=== PATIENT | male | born 1985 | race Caucasian/White ===

== ENCOUNTER 2022-02-11 17:32 | Observation (INO) | payer OTHER, SELFPAY ==
[2022-02-11] VITALS (7 sets, daily range): BP systolic 103–129; BP diastolic 63–77; PULSE 82–148; RESP 16–24; TEMP 36.2–36.9; O2SAT 97–99; BMI 28.3
--- NOTE | ~2022-02-11 | XR_ITS ---
EXAMINATION: XR chest 2V DATE: 02/11/2022 18:14 INDICATION: Shortness of breath and heart palpitations TECHNIQUE: frontal and lateral views of the chest were obtained. COMPARISON: None FINDINGS: The lungs are clear with no focal airspace opacities, pulmonary edema, pleural effusion or pneumothor ax. The cardiomediastinal silhouette is normal. Mild thoracic spondylosis with mild anterior wedging of a few lower thoracic vertebral bodies. IMPRESSION: 1. No acute cardiopulmonary disease. Reviewed, dictated and finalized at location A. BENCH OPERATOR HELPER
--- NOTE | 2022-02-11 17:36 | ECG_ITS ---
Measurements Intervals [place] Rate: 161 P: MO: 0 QRS: 59 QRSD: 82 T: 46 QT: 266 QTc: 436 Interpretive Statements ATRIAL FIBRILLATION WITH RAPID VENTRICULAR RESPONSE INCOMPLETE RIGHT BUNDLE BRANCH BLOCK ABNORMAL ECG NO PREVIOUS ECG AVAILABLE FOR COMPARISON Electronically Signed On 02-11-2022 20:55:49 EPITAXIAL REACTOR OPERATOR by Truong Jones D.O.
[2022-02-11 18:10] LABS: Basophils Percent Auto 0.4 % (0.2-1.2); Eosinophils Absolute Auto 0.1 K/mm3 (0-0.3); Eosinophils Percent Auto 1.3 % (0-4.4); Hematocrit 40.4 % (42.0-52.0); Hemoglobin 13.6 g/dL (14.0-18.0); Immature Granulocyte Absolute 0.02 K/mm3 (0.00-0.031); Immature Granulocyte Percent A 0.3 % (0-0.5); Lymphocytes Absolute Auto 1.83 K/mm3 (0.9-3.2); Lymphocytes Percent Auto 26.5 % (18.3-44.2); Mean Corpuscular HGB Conc 33.7 g/dl (32-36); Mean Platelet Volume 9.9 fl (7.4-10.4); Monocytes Absolute Auto 0.4 K/mm3 (0.1-0.6); Monocytes Percent Auto 6.1 % (2.6-8.5); Neutrophils Absolute Auto 4.5 K/mm3 (1.3-6.7); Neutrophils Percent Auto 65.4 % (45.5-73.1); Platelet Count Result 187 k/mm3 (150-375); Red Blood Count 4.39 M/mm3 (4.6-6.20); Red Cell Distribution Width 11.9 % (11.5-14.5); White Blood Count 6.9 K/mm3 (4.5-10.0)
[2022-02-11 18:19] LABS: Prothrombin Time 12.6 Seconds (11.1-14.7)
[2022-02-11 18:20] LABS: Partial Thromboplastin Time 27.6 SECONDS (22.3-36.8)
[2022-02-11 18:25] LABS: Alanine Aminotransferase 26 U/L (6-50); Alkaline Phosphatase 81 U/L (38-126); Anion Gap 9 mmol/L (8-16); Aspartate Amino Transferase 27 U/L (17-59); Bilirubin,Total 0.2 mg/dL (0.2-1.3); Blood Urea Nitrogen 20 mg/dL (9-20); Calcium 8.7 mg/dL (8.4-10.2); Carbon Dioxide 20 mmol/L (22-30); Chloride 111 mmol/L (98-107); Estimated Glomerular Filt Rate > 60; Glucose 156 mg/dL (65-110); Sodium 140 mmol/L (137-145)
[2022-02-11] MEDS: dilTIAZem HCl INJ 25 MG/5 ML VIAL 10 MG IV PUSH (18:28)
[2022-02-11 18:31] LABS: Troponin I 0.028 ng/mL (0.000-0.034)
--- NOTE | 2022-02-11 19:11 | ED.ARRPALP ---
HPI - Arrhythmia/Palpitations General Chief Complaint: Arrhythmia/Palpitations Stated Complaint: PALPATATIONS Time Seen by Provider: 02/11/22 17:47 History of Present Illness HPI narrative: Patient is a 36-year-old male who presents ER with palpitations. Has been having intermittent palpitations for the last 2 years that last 30 seconds and go away with a deep breath. It began today at 10 AM and has not stopped. He did have a energy drink at 7 AM but that is a daily occurrence for him. He reports some minor chest tightness related to this and shortness of breath with exertion. reports she seemed much more fatigued than typical and slightly more pale. Patient has had no syncope. Because symptoms did not stop he opted to come to the ER for further evaluation. Related Data Allergies Allergy/AdvReac Type Severity Reaction Status Date / Time No Known Allergies Allergy Mild Verified 07/29/10 19:00 Review of Systems Review of Systems: All systems reviewed & are unremarkable except as noted in HPI and below Constitutional: Constitutional: Denies chills, Reports fatigue and Denies fever(s) ENT: Denies nasal congestion and Denies sore throat Cardiovascular: Cardiovascular: Reports chest pain, Reports rapid heart rate and Denies radiating jaw, neck or arm pain Respiratory: Respiratory: Denies cough, Reports dyspnea and Denies wheezing Gastrointestinal: Gastrointestinal: Denies abdominal pain, Denies nausea and Denies vomiting PMFSH Past Medical History Medical History (Updated 02/11/22 @ 19:31 by Markus Henry MD) Healthy adult male Surgical History Surgical History (Updated 02/11/22 @ 19:29 by Markus Henry MD) No pertinent past surgical history Social History Social History (Updated 02/11/22 @ 19:30 by Markus Henry MD) Smoking status: Never smoker Alcohol use details: occassional Exam Narrative: GENERAL: Well-appearing, well-nourished, and in no acute distress. HEAD: Normocephalic, atraumatic. EYES: PERRL and EOMI. ENT: Mucous membranes moist. CHEST: Clear to auscultation. No respiratory distress. HEART: Irregular regular rate and rhythm that is tachycardic. Normal peripheral pulses. ABDOMEN: Soft, nontender, nondistended. EXTREMITIES: Normal range of motion. No edema. SKIN: Warm, dry, no rash. NEURO: Alert and oriented x3. PSYCH: Normal mood and affect. Course Course Emergency Course: Discussed case with Dr. Ward. He would like the patient admitted to the hospitalist service. He is also like the patient received oral metoprolol 25 mg as well as this morning early with 1 mg/kg Lovenox. He will evaluate the patient in the morning to determine further therapy. Vital Signs Vital signs: Vital Signs Temperature 98.4 F 02/11/22 18:23 Pulse Rate 148 H 02/11/22 18:23 Respiratory Rate 24 H 02/11/22 18:23 Blood Pressure 129/74 02/11/22 18:23 Pulse Oximetry 99 02/11/22 18:23 Oxygen Delivery Room Air 02/11/22 18:23 Temperature 98.4 F 02/11/22 18:23 Pulse Rate 86 02/11/22 20:33 Respiratory Rate 20 02/11/22 20:33 Blood Pressure 119/71 02/11/22 20:33 Pulse Oximetry 98 02/11/22 20:33 Oxygen Delivery Room Air 02/11/22 18:23 MDM - Arrhythmia/Palpitations Lab Data Result diagrams: 02/11/22 18:04 02/11/22 18:04 Labs: Lab Results 02/11/22 02/11/22 02/11/22 Range/Units 18:04 18:04 18:04 WBC 6.9 (4.5-10.0) K/mm3 RBC 4.39 L (4.6-6.20) M/mm3 Hgb 13.6 L (14.0-18.0) g/dL Hct 40.4 L (42.0-52.0) % MCV 92.0 (80-100) fl MCH 31.0 (26-34) pg MCHC 33.7 (32-36) g/dl RDW 11.9 (11.5-14.5) % Plt Count 187 (150-375) k/mm3 MPV 9.9 (7.4-10.4) fl Immature Gran % (Auto) 0.3 (0-0.5) % Neut % (Auto) 65.4 (45.5-73.1) % Lymph % (Auto) 26.5 (18.3-44.2) % Bowman % (Auto) 6.1 (2.6-8.5) % Eos % (Auto) 1.3 (0-4.4) % Baso % (Auto) 0.4 (0.2-1.2) % L
[2022-02-11] MEDS: METOPROLOL TARTRATE 25 MG TABLET PO (19:27)
[2022-02-11] MEDS: ENOXAPARIN 120 MG/0.8 ML SYRINGE 110 MG SUB-Q (19:28)
--- NOTE | 2022-02-11 21:36 | ADMGEN ---
This patient, Gold Spicer Jr., was admitted to Medical Room 241-01. Patient/family oriented to hospital policies and general routines including ID bracelet, bed and alarms, visiting hours, pain management, procedures, bathroom and other care routines, personal items, smoking policy, room service/diet, and visiting hours. Information on how to activate the Rapid Response Team has been discussed. Patient/Family are encouraged to report perceived risks to care and to ask questions if they do not understand what they are told or what they should do.
--- NOTE | 2022-02-11 23:55 | PM.IMHP ---
H&P: HPI History of Present Illness Date/Time: 02/11/22 23:55 Chief Complaint: Irregular heart rate Narrative: 36-year-old male previously healthy who presented to the ER with irregular heart rate. Patient reports that he has been having intermittent episodes of fast irregular fast heart rate for the last 2-3 years. He reports that he has had probably 10-12 episodes over that time. Usually when he feels these palpitations and heart racing it only lasted a few minutes. However today it started around 10:00am and persisted. He initially tried to sit down and relax but the symptoms continued. So then he decided decided to jump on the treadmill and run for about 10 minutes to see if this would relieve his symptoms. This made him feel more short of breath so he stopped. He reported that after he had been having the symptoms for about 5 hours he became significantly short of breath and decided to come to the ER. He denies any true chest pain. He reports that he feels his heart fluttering up in his chest and up into his neck. He put his sons Apple watch on which demonstrated is heart rate was fast and running as high as 180 beats per minute. He denies any orthopnea, paroxysmal nocturnal dyspnea, cough, congestion or feeling lightheaded or having episodes of syncope. 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 He does admit to drinking 1 energy drink at around 07:00 every single day. He will occasionally drink a diet Mountain Dew in the evening. He denies any illicit substance use. He reports that he has been sleeping well and denies any extra stressors. He denies any preceding symptoms such as chest pain or dyspnea on exertion. He does drink between 1-3 beers daily. He does snore but denies any reported episodes of apnea. He feels well rested when he wakes up. On exam he does have crowded posterior oropharynx. He has never been tested for sleep apnea. The patient is quite anxious at this time and states that he wants to know when his heart is going to quit causing. I did discuss with the patient that his heart was not causing in that this sensation he is feeling his associated with his heart rate slowing and him trying to cover back into sinus rhythm. He has not seen a primary care physician in many years. He reports that he is otherwise healthy. He denies any history of hypertension. He will occasionally check his blood pressure on his 's a quit at that she has due to her being a hardware trainer. He reports that his blood systolic blood pressures have never been above 130 over 80. For the most part his blood pressures are in the 110 range systolic. Review of Systems Review of Systems: 12 systems were reviewed with pertinent positives and negatives per HPI. Except as documented in the HPI, all other systems were reviewed and are negative. [facility] Past Medical History Medical History (Updated 02/11/22 @ 19:31 by Markus Henry MD) Healthy adult male Surgical History Surgical History (Updated 02/12/22 @ 03:25 by Laura Christiansen DO) Status post anal fissurectomy Family History Family History (Updated 02/12/22 @ 03:25 by Laura Christiansen DO) Mother Diabetes mellitus Morbid obesity Father Tobacco use Hypertension Hyperlipidemia COPD (chronic obstructive pulmonary disease) Cirrhosis Social History Social History (Updated 02/12/22 @ 03:27 by Laura Christiansen DO) Social History: He lives with his and 2 children. His children are 15 and 12 years old respectively. 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 He drinks 1-3 beers nightly. He is a lifelong nonsmoker and denies illicit substance use. Code status: Full code Surrogate decision maker: Smoking status: Never smoker Alcohol intake: current Drinks per week: 7 Alcohol use details: occassional Substance use: never Lack of T
[2022-02-12] VITALS (13 sets, daily range): BP systolic 93–130; BP diastolic 61–85; PULSE 65–138; RESP 10–20; TEMP 36.4–36.7; O2SAT 96–100
--- NOTE | 2022-02-12 | ECHO_ITS ---
Patient Info Name: Gold Spicer Age: 36 years : 1985 Gender: Male Ht: 73 in Wt: 242 lbs BSA: 2.41 m2 HR: 119 bpm BP: 121 / 77 mmHg Heart Rhythm: Atrial Fibrillation Technical Quality: Fair Exam Date: 02/12/2022 8:08 AM Exam Location: [facility] Patient Status: Outpatient Admit Date: 02/11/2022 Staff Ordering Physician: Laura Christiansen DO Change Management Manager: Elida Granger RDCS Attending Provider: Hedy Alejandra PA-C Referring Physician: Kuldip SU; Exam Type: CA echo doppler color flow Study Info Indications - New onset Afib Complete two-dimensional, color flow and Doppler transthoracic echocardiogram is performed. Summary 1. Complete two-dimensional, color flow and Doppler transthoracic echocardiogram is performed. 2. Left ventricular chamber dimension is normal. 3. Left ventricular systolic function is normal, estimated at 60-65%. 4. There is mildly increased left ventricular wall thickness. 5. The left ventricular diastolic function is indeterminate. 6. Left atrial chamber dimension is mildly enlarged. 7. Right atrial chamber dimension is mildly enlarged. 8. There is mild mitral valve regurgitation. 9. There is mild tricuspid valve regurgitation. Left Ventricle Left ventricular chamber dimension is normal. Left ventricular systolic function is normal, estimated at 60-65%. There is mildly increased left ventricular wall thickness. The left ventricular diastolic function is indeterminate. Right Ventricle Right ventricular chamber dimension is normal. Right ventricular systolic function is normal. Left Atria Left atrial chamber dimension is mildly enlarged. Right Atria Right atrial chamber dimension is mildly enlarged. Atrial Septum Intact interatrial septum visualized by color flow imaging. Aortic Valve The aortic valve is probable trileaflet. There is no aortic valve sclerosis. There is no aortic valve stenosis. There is trace aortic valve regurgitation. Pulmonic Valve The pulmonic valve is normal. There is no pulmonic valve stenosis. There is trace pulmonic regurgitation. Mitral Valve The mitral valve has normal leaflets. There is no mitral valve stenosis. There is mild mitral valve regurgitation. Tricuspid Valve The tricuspid valve leaflets are normal. There is no significant tricuspid valve stenosis. There is mild tricuspid valve regurgitation. No pulmonary hypertension, estimated pulmonary arterial systolic pressure is 23 mmHg. Pericardium/Pleural The pericardium appears normal. There is no pericardial effusion. Inferior Vena Cava Normal inferior vena cava with >50% collapse upon inspiration consistent with normal right atrial pressure, 10 mmHg. Aorta The aortic root size at the sinus of Valsalva is normal. Left Ventricular Outflow Tract Name Value Normal LVOT 2D LVOT Diameter 2.1 cm LVOT Doppler LVOT Peak Gradient 4 mmHg LVOT Mean Gradient 2 mmHg LVOT VTI 18 cm LVOT VTI/AV VTI Ratio 0.9
[2022-02-12 05:09] LABS: Anion Gap 8 mmol/L (8-16); Blood Urea Nitrogen 14 mg/dL (9-20); Calcium 8.3 mg/dL (8.4-10.2); Carbon Dioxide 25 mmol/L (22-30); Chloride 108 mmol/L (98-107); Estimated CRCL calculation 128 ml/min; Estimated Glomerular Filt Rate > 60; Glucose 110 mg/dL (65-110); Potassium 3.9 mmol/L (3.4-5.0); Sodium 141 mmol/L (137-145)
[2022-02-12] MEDS: METOPROLOL TARTRATE 25 MG TABLET PO (08:47)
--- NOTE | 2022-02-12 14:16 | PM.CNCAR ---
Assessment and Plan Assessment and plan (1) Atrial fibrillation with RVR: Code(s): I48.91 - Unspecified atrial fibrillation Status: Acute Assessment and Plan: New onset atrial fibrillation with rapid ventricular response. He went in atrial fibrillation less than 48 hours ago. He did receive a dose of 1 milligram/kilogram of enoxaparin last night. He has a chads Vasc score of 0. Plan will be for elective cardioversion now. Will check a free T4 level also. Outpatient stress test. Will start metoprolol therapy 12.5 mg p.o. b.i.d. upon discharge as well as Xarelto 20 mg daily for a minimum of 4 weeks post discharge. No need for MICHEAL as he recently went into atrial fibrillation within 48 hours. If cardioversion does not work or if he has recurrent episodes of atrial fibrillation future, will consider antiarrhythmic therapy and obviously long-term strategy may even include an ablation depending on the need. He is also advised to limit or eliminate caffeine and alcohol from his diet. Outpatient sleep study also EKG after procedure (2) Biatrial enlargement: Code(s): I51.7 - Cardiomegaly Status: Acute Assessment and Plan: Mild (3) Mitral regurgitation: Code(s): I34.0 - Nonrheumatic mitral (valve) insufficiency Status: Acute Assessment and Plan: Mild and asymptomatic. Will repeat an echo in 3-5 years History of Present Illness History of Present Illness Consult date/time: 02/12/22 14:16 Requesting physician: Markus Henry MD Consult reason: atrial fibrillation Reason For Visit: AFIB Narrative: Date of service 02/12/2022 Reason for consultation: Atrial fibrillation Requesting provider: Dr. Henry History: Patient is a 36-year-old male who does not have known cardiac history. He states that about 10 times over the past 3 years he has had what he thinks is atrial fibrillation. He assumed it was based upon some reading and understanding of the rhythm problem. He would go into an abnormal rhythm where he would feel a intermittent palpitation and flutter sensation as well as it rushing beat up into his neck. It would last for few minutes and spontaneously resolved. Yesterday at 10:00 a.m. a started. Yesterday however it did not stop. Despite several hours of waiting as well as some other treatments is aspirin, he decided come to the ER for further workup and evaluation. He was found to be in atrial fibrillation with rapid ventricular response upon presentation to the ER. He was given diltiazem which did lower his heart rate and was admitted for further observation. He did have metoprolol today about heart rate is still somewhat elevated on low 100. He is still symptomatic. Yesterday he was short of breath. He otherwise denies any recent chest pain, syncope, presyncope, paroxysmal nocturnal dyspnea, orthopnea, edema. He does sometimes snore but does not snore routinely. He has a chads Vasc score 0. He does drink 1-3 beers per day as well as 1 energy drink in the morning. Review of Systems Review of Systems: All systems reviewed & are unremarkable except as noted in HPI and below Constitutional: Constitutional: Denies body ache(s) and Denies chills Eyes: Eyes: Denies blurry vision ENT: Reports Normal hearing present and Denies epistaxis Cardiovascular: Cardiovascular: Denies chest pain and Reports palpitations Respiratory: Respiratory: Denies hemoptysis and Reports dyspnea Gastrointestinal: Gastrointestinal: Denies abdominal pain Genitourinary: Genitourinary: Denies hematuria Musculoskeletal: Musculoskeletal: Denies back pain and Denies myalgias Integumentary/Breasts: Skin/Breast: Denies breast pain, Denies erythema and Denies rash Neurologic: Denies Abnormal speech present and Denies abnormal gait Psychiatric: Psychiatric: Reports anxiety Endocrine: Endocrine: Denies excessive sweating Hematologic/Lymphatic: Hematologic/Lymphati
--- NOTE | 2022-02-12 14:20 | ECG_ITS ---
Measurements Intervals [place] Rate: 60 P: 53 SC: 185 QRS: 53 QRSD: 108 T: 34 QT: 379 QTc: 379 Interpretive Statements SINUS RHYTHM INCOMPLETE RIGHT BUNDLE BRANCH BLOCK NONSPECIFIC ST ELEVATION IN ANT/INF LEADS BORDERLINE ECG COMPARED TO ECG 02/11/2022 17:37:11 [address] NOW PRESENT [address] (T WAVE) DEVIATION NOW PRESENT Electronically Signed On 02-12-2022 16:06:08 SOLDERING MACHINE OPERATOR HELPER by Truong Jones D.O.
[2022-02-12] MEDS: RIVAROXABAN 20 MG TABLET PO (14:22)
--- NOTE | 2022-02-12 14:27 | WPDMODSED ---
Moderate Sedation Note-Pt Data Patient Data Diagnosis: 1. Atrial fibrillation Present Complaint: Atrial fibrillation Procedure to be performed/Plan: 1. Elective cardioversion Moderate sedation Allergies Allergy/AdvReac Type Severity Reaction Status Date / Time No Known Allergies Allergy Mild Verified 07/29/10 19:00 Home Medications Medication Instructions Recorded Confirmed Type No Home Medications 02/11/22 02/11/22 History Current Medications: Active Medications Acetaminophen (Acetaminophen 325 Mg Tablet) 650 mg PO Q4H PRN PRN Reason: Mild Pain (1-3) or Fever Metoprolol Tartrate (Metoprolol Tartrate 25 Mg Tablet) 25 mg PO Q12HR [facility] Last Admin: 02/12/22 08:47 Dose: 25 mg Ondansetron HCl (Ondansetron Inj 4 Mg/2 Ml Vial) 4 mg IV PUSH Q4H PRN PRN Reason: Nausea Perflutren Lipid Microsphere (Perflutren Lipid Microspheres 1.5 Ml Vial Diluted To 10 Ml Total Volume) 0 ml IV PUSH ONCE PRN; Protocol PRN Reason: adequate visualization Stop: 02/13/22 20:12 Rivaroxaban (Rivaroxaban 20 Mg Tablet) 20 mg PO DAILY@1700 [facility] Last Admin: 02/12/22 14:22 Dose: 20 mg Sedation/Anesthesia: No previous sedation/anesthesia problems (including family history). [facility] Past Medical History Medical History Healthy adult male Surgical History Surgical History Status post anal fissurectomy Family History Family History Mother Diabetes mellitus Morbid obesity Father Tobacco use Hypertension Hyperlipidemia COPD (chronic obstructive pulmonary disease) Cirrhosis Social History Social History Social History: He lives with his and 2 children. His children are 15 and 12 years old respectively. 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 He drinks 1-3 beers nightly. He is a lifelong nonsmoker and denies illicit substance use. Code status: Full code Surrogate decision maker: Smoking status: Never smoker Alcohol intake: current Drinks per week: 7 Alcohol use details: occassional Substance use: never Lack of Transportation: No Lack of Food: Never True Current Housing: I Have Housing Concerned About Future Housing: No Difficulty Paying Gas/Electric Bills: No Difficulty Paying for Meds: No Currently Unemployed: No Education: Don't Know Difficulty w/ Childcare or Family Care: No Spiritual care concerns: No Mod Sed Physical Exam Physical Exam Pre Procedural Exam: Normal: Appearance, Eyes, Ears, Nose, Neck, Throat, Airway, Lungs, Heart Size, Neuro Exam, Extremities and Skin and Variation: Heart Rate (Tachycardia) and Heart Rhythm (Irregular irregular) Hours since solid foods: 2 Hours since liquid intake: 2 Mallampati Classification: class 1 Internal Medicine - PN: Obj Da Vital Signs Vital Signs: Vital Signs - 24 hr 02/11/22 18:23 02/11/22 18:46 02/11/22 19:25 Temperature 36.9 C Pulse Rate 148 H 105 H 95 Respiratory Rate 24 H 16 Blood Pressure 129/74 112/63 Pulse Oximetry 99 99 Oxygen Delivery Room Air 02/11/22 19:27 02/11/22 20:33 02/11/22 21:24 Temperature Pulse Rate 103 H 86 82 Respiratory Rate 20 18 Blood Pressure 119/71 103/77 Pulse Oximetry 98 99 Oxygen Delivery 02/11/22 21:53 02/11/22 21:40 02/12/22 00:00 Temperature 36.2 C L Pulse Rate 94 97 Respiratory Rate 20 Blood Pressure 126/74 Pulse Oximetry 97 Oxygen Delivery Room Air 02/12/22 04:28 02/12/22 04:00 02/12/22 08:00 Temperature 36.4 C Pulse Rate 119 H 96 93 Respiratory Rate 20 Blood Pressure 121/77 Pulse Oximetry 98 Oxygen Delivery 02/12/22 12:00 Temperature Pulse Rate 93 Respiratory Rate Blood Pressure Pulse Oximetry Oxygen Delivery Intake/Output Intake/Output:
--- NOTE | 2022-02-12 14:45 | P.PCNCVR_ITS ---
Cardioversion Cardioversion Date of procedure: 02/12/22 Procedure: Electrical cardioversion Moderate sedation Pre-op diagnosis: Atrial fibrillation Post-op diagnosis: Same Indications: Atrial fibrillation Description of procedure: After discussing risks, benefits alternatives of procedure patient agreeable via verbal and written informed consent. Risks discussed included skin irritation or burn, , shocked into more problematic heart rhythm, adverse reaction to anesthesia. After continuous telemetry monitoring, pulse oxygenation and serial blood pressure assessments were established, a time-out was taken the procedure was started. Procedure start time 2:31 p.m. Procedure stop time 2:40 p.m. Sedation: A total 4 mg Versed and 75 mcg of fentanyl were given in divided dosages Patient was monitored and medications were administered by Elin Wang RN Complications: None Blood loss: None Sedation: As above Findings: Successful anabaptism of sinus rhythm from atrial fibrillation using 150 joules of biphasic synchronized energy Conclusion: 1. Successful anabaptism of sinus rhythm from atrial fibrillation using 150 joules of biphasic synchronized energy 2. Moderate sedation Plan he will need 1 month of uninterrupted anticoagulation using Xarelto 20 mg daily. Also discharged home with 12.5 mg p.o. b.i.d. of metoprolol tartrate. Outpatient stress test as well as outpatient sleep study Follow-up with me in 2-4 weeks
[2022-02-12 15:18] LABS: T4 Thyroxine 5.76 ug/dL (5.53-11.0)
--- NOTE | 2022-02-12 16:14 | PM.DS ---
DS: Admitting Diagnosis Discharge Date 02/12/2022 Admitting Diagnosis Atrial fibrillation with rapid ventricular response DS: Discharge Diagnosis Discharge Diagnosis (1) Atrial fibrillation with RVR: Code(s): I48.91 - Unspecified atrial fibrillation Status: Acute Assessment and Plan: New onset AFib RVR the but sounds like the patient has likely been having symptoms consistent with paroxysmal AFib for a couple of years. He received 1 dose of IV Cardizem in the ER and rate was well controlled following, however remained in atrial fibrillation. He was started on p.o. metoprolol and monitored on telemetry. Received therapeutic Lovenox on presentation. Following cardiology consultation, decision was made to proceed with cardioversion. Patient was successfully cardioverted on 02/12/2022 with mormonism of sinus rhythm. He will continue 1 month of systemic anticoagulation (Xarelto 20 mg daily). Patient educated on anticoagulation precautions and agreeable to proceed. Also continue with metoprolol tartrate 12.5 mg b.i.d.. Echocardiogram was unremarkable with normal EF, indeterminate diastolic function, mild atrial enlargement, no significant valvular disease. He will need outpatient stress test and outpatient sleep study. He will follow-up with cardiology in 2-4 weeks. He was counseled on cessation of alcohol and caffeine use. DS: Summary Hospital Course Hospital Course: Date of admission: 02/11/2022 Date of discharge: 02/12/2022 Gold Spicer is a 36-year-old male with no prior medical history who presented to the ER on 02/11/2022 with complaints of palpitations ongoing for about 6 hours prior to presentation. Reports similar episodes in the past that usually lasted 30 seconds and resolved. Reportedly patient had been increasingly fatigued and had some minor shortness of breath with exertion. On presentation to the ED, his heart rate was 148, respiratory rate 24, additional vital signs stable, hemoglobin 13.6, hematocrit 40.4, additional laboratory workup unremarkable, CXR with no acute cardiopulmonary disease. Patient was admitted to the hospitalist service for further evaluation management was seen in consultation by cardiology. Please see plan as above. Following cardioversion patient was feeling back to his usual state of health and felt comfortable with plans for discharge home. He was discharged in hemodynamically stable condition on 02/12/2022. Status at Discharge Functional status at discharge: independent ambulation Time Spent with Patient Time attestation: Total time spent providing and/or coordinating discharge services: 35 minutes Time spent: Greater than 30 minutes Exam Narrative: General: Well-nourished, well-appearing 36-year-old male, sitting up in bed, comfortable, NARD Neuro: awake, alert and oriented x4, speech clear, no focal neuro deficits noted HEENMT: normocephalic, atraumatic, EOMI, sclerae anicteric, moist oral mucosa Respiratory: clear to auscultation bilaterally, nonlabored breathing Cardio: tachycardic, irregularly irregular rhythm Abdomen: nondistended, normoactive bowel sounds, soft, nontender to palpation Extremities: no edema, erythema, or tenderness to palpation Skin: no rashes or lesions, warm and dry Psych: appropriate mood and affect, judgment and insight intact DS: Data Data Completed and Pending Labs on day of discharge: Labs from last 24 hours 02/12/22 02/12/22 02/12/22 04:37 04:37 04:34 WBC RBC Hgb Hct MCV MCH MCHC RDW Plt Count MPV Immature Gran % (Auto) Neut % (Auto) Lymph % (Auto) Mills % (Auto) Eos % (Auto) Baso % (Auto) Lymph # (Auto) Mills # (Auto) Eos # (Auto) Baso # (Auto) Abs Immat Gran (auto) Absolute Neuts (auto) Absolute Nucleated RBC Nucleated RBC % PT INR APTT Sodium 141 Potassium 3.9 Chloride 108 H Carbon Dioxide 25 Anion Gap
== END 2022-02-12 16:49 | disposition home or self-care (01) ==
LOC: ANHED 18:40 → ANH2MED 21:22
PROVIDERS: Internal Medicine Cardiovascular Disease; Admitting Provider Internal Medicine; Emergency Provider Emergency Medicine; Visit Provider Physician Assistant
PROC: 5A2204Z Restoration of Cardiac Rhythm, Single (ICD-10-PCS; principal; 2022-02-12 14:15)
DX: I48.91 Unspecified atrial fibrillation (principal); I45.10 Unspecified right bundle-branch block; R94.31 Abnormal electrocardiogram [ECG] [EKG]; F10.90 Alcohol use, unspecified, uncomplicated; I08.1 Rheumatic disorders of both mitral and tricuspid valves; Z82.49 Family history of ischemic heart disease and other diseases of the circulatory system
CPT/HCPCS: 36415; 71046; 80048; 80053; 83735; 84436; 84443; 84484; 85025; 85610; 85730; 92960; 93005; 93306; 96372; 96374; 99285; A9270; G0378; J1650; J2250; J3010; J7040